=== PATIENT | male | born 1975 | race Caucasian/White ===

== ENCOUNTER 2023-12-11 21:40 | Emergency (ER) | payer BC, SELFPAY ==
[2023-12-11 21:42] VITALS: BP 144/94
[2023-12-11 22:11] VITALS: BP 125/81
[2023-12-11 22:42] VITALS: BP 147/80
[2023-12-11 22:45] LABS: % Basophils 0.8 % (0-2); % Eosinophils 10.3 % (0-6); % Immature Granulocytes 0.2 % (0-0.5); % Lymphocytes 12.9 % (20.5-51.1); % Monocytes 6.4 % (1.7-9.3); % Neutrophils 69.4 % (42.2-75.2); Absolute Basophils 0.1 10^3/uL (0-0.2); Absolute Eosinophils 0.9 10^3/uL (0-0.7); Absolute Lymphocytes 1.1 10^3/uL (1.2-3.4); Absolute Monocytes 0.6 10^3/uL (0.1-0.6); Hematocrit 36.5 % (39.0-52.0); Hemoglobin 13.1 g/dL (13.0-18.0); Mean Corp Hgb Conc. 35.9 g/dL (33.0-37.0); Mean Corpuscular Hgb 28.1 pg (27.0-31.0); Mean Corpuscular Volume 78.2 fL (80.0-94.0); Mean Platelet Volume 9.8 fL (7.4-10.4); Nucleated Red Blood Cells % 0 % (-); Platelet Count 229 10^3/uL (130-400); Red Blood Cell Count 4.67 10^6/uL (4.70-6.10); Red Cell Dist. Width 12.8 % (11.5-14.5); White Blood Cell Count 8.7 10^3/uL (4.8-10.8)
[2023-12-11] MEDS: ATIVAN 0.5 MG PO (22:46)
[2023-12-11 22:58] VITALS: BP 147/80
[2023-12-11 23:00] VITALS: BP 125/85
[2023-12-11 23:00] LABS: ALT (SGPT) 29 U/L (0-50); AST (SGOT) 30 U/L (17-59); Albumin 4.2 g/dl (3.5-5.0); Alkaline Phosphatase 60 U/L (38-126); Blood Urea Nitrogen 18 mg/dl (9-20); Calcium 9.5 mg/dl (8.4-10.2); Carbon Dioxide 24 mmol/L (22-30); Chloride 100 mmol/L (98-107); Estimated Creatinine Clearance 94 ml/min; Glucose 167 mg/dl (70-99); Potassium 3.9 mmol/L (3.5-5.1); Sodium 132 mmol/L (135-145); Total Bilirubin 0.8 mg/dl (0.2-1.3); Total Protein 6.6 g/dl (6.3-8.2); eGFR > 60.00
[2023-12-11 23:11] LABS: NT-proBNP < 20.0 pg/ml; Troponin I < 0.012 ng/ml
--- NOTE | 2023-12-11 23:24 | ED.GENMED ---
History of Present Illness
General
Chief Complaint: Medication Reaction
Source: patient and family
Exam Limitations: none
Time Seen by Provider: 12/11/23 21:53
Nursing documentation reviewed up to this point in time: agreed with
History of Present Illness
History of Present Illness:
Pleasant 48-year-old male presents with dizziness shortness of breath and anxiety. He suffered an injury on Tuesday possibly tearing his Achilles. He was put on tramadol and he feels that the tramadol is reactive with his asthma medications.
Patient is extremely anxious and admits that he needs help with his anxiety. He does have a extensive history for asthma and pneumonia. Denies fever, chills, chest pain, headache. He does have some perceived shortness of breath. Denies any other
symptoms at this time.
Past History
Past History
ED Past Medical History: Asthma (Diagnosed with asthma about 2 years ago)
ED Past Surgical History: Other
Social History
Tobacco: Non-smoker
Alcohol: None
Drug: None
Personal:
Living: with family
Employment: Employed
Family History
Family History: Other (Noncontributory)
Review of Systems
Review of Systems
Allergies reviewed?: Yes
Other source history: family
All Other Systems: ROS reviewed and negative except as documented in HPI and ROS
Constitutional: Reports no symptoms
EENT: Reports no symptoms
Respiratory: Reports trouble breathing
Cardiac: Reports no symptoms
ABD/GI: Reports no symptoms
: Reports no symptoms
Musculoskeletal: Reports no symptoms
Skin: Reports no symptoms
Neurological: Reports no symptoms
Endocrine: Reports no symptoms
Hematologic/Lymphatic: Reports no symptoms
Psychiatric: Reports anxiety
Phy Exam
General Physical Exam
General Presentation: well appearing and no apparent distress
General Skin: warm and dry
General Habitus: normal
General Mental: alert
General Hydration: appears well hydrated
ENT Exam
ENT Exam: EOMI, pharynx normal, neck supple and normocephalic
Eye Exam
Eye Exam: PERRL, cornea clear and conjunctiva normal
Cardiovascular Exam
Cardiovascular Exam: regular rate/rhythm, no edema, no murmur and normal peripheral pulses
Pulmonary Exam
Pulmonary Exam: lungs clear, no respiratory distress, no rales, no crackles, no rhonchi, no stridor, no wheezing and no cough
Gastrointestinal Exam
Gastrointestinal Exam: normal bowel sounds, non tender, soft, no organomegaly, no pulsatile mass and non distended
Neurological Exam
Neurological Exam: alert, oriented x3, no motor deficits and speech normal
Musculoskeletal Exam
Musculoskeletal Exam: full ROM and no edema
Skin Exam
Skin Exam: normal color, warm/dry, no rash and no petechia
Psychiatric Exam
Psychiatric Exam: anxious
Scores
PE Wells Score
Symptoms of DVT: No
No alternative diagnosis better explains the illness: No
Tachycardia with pulse > 100: No
Immobilization (>=3 days) or surgery within previous 4 weeks: No
Prior history of DVT or pulmonary embolism: No
Presence of hemoptysis: No
Presence of malignancy: No
Pulmonary Embolism Risk Score: 0
Probability of PE: Pt is low risk
Course
Orders/Labs/Results
Orders:
Orders
12/11/23 22:34
Electrocardiogram (*1) Urgent
Reason for Study: Other
Other Reason for Exam: Respiratory Distress
Cardiac Monitoring- Treatment ONCE
EKG- Treatment ONCE
CR Chest - 2 Views Urgent
Comment:
Reason For Exam: respiratory distress
O2 Therapy [RESP] Urgent
Titrate/Wean O2 to maintain O2 sat greater than (%): 93
Special Instructions: TO MAINTAIN CONTINUOUS O2 SATS >/= 93%
Pulse Ox/cont/shift [RESP] Urgent
Quantity: 1
Special Instructions: continuous pulse ox
12/11/23 22:36
Complete Blood Count/With Diff Urgent
Comprehensive Metabolic Panel Urgent
NT-proBNP Urgent
Troponin I Urgent
12/11/23 22:39
Lorazepam [Ativan] 0.5 mg PO NOW STA
12/11/23 23:56
Ondansetron Injectable [Zofran] 4 mg .ROUTE .STK-MED ONE
12/11/23 23:57
Ondansetron Injectable [Zofran] 4 mg IV NOW STA
12/12/23 00:10
Add On- LAB Urgent
Tests Added?: ddimer
12/12/23 00:21
D-Dimer Urgent
Abnormal Lab Results
12/11/23
22:36
RBC 4.67 L 10^6/uL
(4.70-6.10)
Hct 36.5 L %
(39.0-52.0)
MCV 78.2 L fL
(80.0-94.0)
Absolute Lymphs (auto) 1.1 L 10^3/uL
(1.2-3.4)
Absolute Eos (auto) 0.9 H 10^3/uL
(0-0.7)
Lymphocytes % 12.9 L %
(20.5-51.1)
Eosinophils % 10.3 H %
(0-6)
Sodium 132 L mmol/L
(135-145)
Glucose 167 H mg/dl
(70-99)
12/11/23 22:36
12/11/23 22:36
Vital Signs
Initial and Last Documented VS:
Initial Vital Signs
Temp Pulse Resp BP Pulse Ox
98.1 F 86 28 144/94 96
12/11/23 21:42 12/11/23 21:42 12/11/23 21:42 12/11/23 21:42 12/11/23 21:42
Last Documented Vital Signs
Temp Pulse Resp BP Pulse Ox
98.1 F 80 17 137/89 98
12/11/23 21:42 12/12/23 00:45 12/12/23 00:45 12/12/23 00:00 12/12/23 01:59
*Critical Care Note
Total Time (30-74mins, 75-104mins- exclusive of procedures): Not Applicable
ED Attending Note
-
Portions of this chart may have been created with voice recognition software.� Occasional wrong word or��sound alike� substitutions may have occurred due to the inherent limitations of voice recognition software.
Discharge Plan
Departure
Patient Disposition: Home (Routine Discharge)
Date of Disposition: 12/12/23
Time of Disposition: 01:23
Patient with high blood pressure during this ER visit?: Yes
Condition: Good
Discharge Problem:
Medication reaction, Anxiety
Instructions: Anxiety, Adult ED, Adverse Drug Reactions, Adult ED, BLOOD PRESSURE
Prescriptions:
New
lorazepam [Ativan] 0.5 mg tablet
0.5 mg PO BID PRN (Reason: anxiety) Qty: 7 0RF
No Action
guaifenesin [Mucinex] 600 mg Tablet Extended Release 12hr
600 mg PO BID
budesonide 1 mg/2 mL Suspension For Nebulization
1 mg INHALATION DAILY
amoxicillin-pot clavulanate
1 dose PO BID
albuterol sulfate 1.25 mg/3 mL solution for nebulization
1.25 mg inhalation Q4H
Referrals:
Antonio Lucero MD [Family Provider] -
Activity Restrictions/Additional Instructions:
It was a pleasure meeting you and taking part in your care. We hope for your continued healing and wellness.
Please read discharge instructions in their entirety. However, they are for general education and may not describe your exact diagnosis at discharge. Information on your ER visit and medical conditions were discussed with you along with appropriate
follow up information...
If indicated, please take your medications as instructed and indicated on discharge paperwork.
Please schedule a follow up appointment as directed. Call to schedule an appointment
Please return to the emergency department with ANY change in, persisting, or worsening of symptoms. If any of your symptoms do not improve, or persist, or become more severe within 6-12 hours, please return to the emergency department for further
care.
Please return to the emergency department if you develop a headache, neck pain/stiffness, fever greater than 100.4F, chest pain, shortness of breath, persistent nausea, vomiting, slurred speech, difficulty walking, numbness/tingling, weakness, signs
of infection or any other symptoms that are worrisome to you.
If you have any questions or concerns please do not hesitate to call the Hospital at or E-mail me directly at [email or web address]
Interventions
Interventions:
*Risk Screen - Suicide Last Done: 12/11/23 21:42
*General Assessment Last Done: 12/11/23 23:11
*Neglect/Abuse Screening Last Done: 12/11/23 23:54
ED- Fall Risk Assessment Last Done: 12/12/23 01:59
*ED COVID-19 Vaccine History Last Done: 12/11/23 23:11
*Nursing Disposition Last Done: 12/12/23 01:59
ED-Skin Assessment Last Done: 12/11/23 22:24
ED- Pulmonary Assessment Last Done: 12/11/23 22:24
ED-EENT Assessment Last Done: 12/11/23 22:28
Discharge Date and Time
Discharge Date/Time: 12/12/23 02:00
Print Language: BENGALI
[2023-12-11] MEDS: ZOFRAN 4 MG IV (23:57)
[2023-12-12] VITALS: BP 137/89
[2023-12-12 00:50] LABS: D-Dimer 0.43 ug/mlFEU (0.00-0.50)
== END 2023-12-12 02:00 | disposition home or self-care (01) ==
LOC: EMR 21:40
PROVIDERS: EMERGENCY PHYSICIAN Student in an Organized Health Care Education/Training Program; FAMILY PHYSICIAN Family Medicine
DX: R42 Dizziness and giddiness (principal); R06.02 Shortness of breath; T40.425A Adverse effect of tramadol, initial encounter; F41.9 Anxiety disorder, unspecified; J45.909 Unspecified asthma, uncomplicated; R03.0 Elevated blood-pressure reading, without diagnosis of hypertension
CPT/HCPCS: 99285; 96374; 71046; 80053; 83880; 84484; 85025; 85379; 93005

== ENCOUNTER → 2023-12-19 08:12 | Day surgery (SDC) | payer BC, SELFPAY ==
--- NOTE | 2023-12-16 15:46 | PTCARENOTE ---
Anesthesia consult requested by Dr. Merritt. Dr. Zhang notified.
[2023-12-19] VITALS (8 sets, daily range): BP systolic 104–144; BP diastolic 72–91; BMI 30.6
[2023-12-19] MEDS: TYLENOL 1000 MG PO (08:42)
[2023-12-19] MEDS: CELEBREX 200 MG PO (08:42)
[2023-12-19] MEDS: NORMOSOL-R 1000 IV (08:42)
== END | disposition home or self-care (01) ==
LOC: SDS 08:12
PROVIDERS: ATTENDING PHYSICIAN Student in an Organized Health Care Education/Training Program
DX: S86.011A Strain of right Achilles tendon, initial encounter (principal); W01.0XXA Fall on same level from slipping, tripping and stumbling without subsequent striking against object, initial encounter
CPT/HCPCS: 27650; 94640; C1776

== ENCOUNTER → 2024-01-04 12:22 | Outpatient (REF) | payer BC, SELFPAY | LOC: HWRAD 12:22 | PROVIDERS: ATTENDING PHYSICIAN Nurse Practitioner Family; FAMILY PHYSICIAN Family Medicine | DX: J45.40 Moderate persistent asthma, uncomplicated (principal); J15.8 Pneumonia due to other specified bacteria | CPT/HCPCS: 71046 ==

== ENCOUNTER 2024-06-11 06:24 | Day surgery (SDC) | payer BC, SELFPAY | END 2024-06-11 11:01 | disposition home or self-care (01) | LOC: GI 06:24 | PROVIDERS: ATTENDING PHYSICIAN Student in an Organized Health Care Education/Training Program | DX: Z12.11 Encounter for screening for malignant neoplasm of colon (principal); K63.5 Polyp of colon; K57.20 Diverticulitis of large intestine with perforation and abscess without bleeding; K57.30 Diverticulosis of large intestine without perforation or abscess without bleeding | CPT/HCPCS: 45385; 45380; 88305 ==

== ENCOUNTER → 2024-07-26 14:02 | Outpatient (REF) | payer BC, SELFPAY | LOC: PAVMRI 14:02 | PROVIDERS: ATTENDING PHYSICIAN Student in an Organized Health Care Education/Training Program; FAMILY PHYSICIAN Family Medicine | DX: M25.571 Pain in right ankle and joints of right foot (principal) | CPT/HCPCS: 73721 ==